=== PATIENT | male | born 1955 | race Caucasian/White ===

== ENCOUNTER 2016-05-16 08:39 | Observation (INO) | payer MEDICAID ==
[2016-05-16] VITALS (8 sets, daily range): BP systolic 146–170; BP diastolic 66–88; PULSE 75–99; RESP 14–20; TEMP 98.5; O2SAT 97–100
[~2016-05-16] VITALS: Ht 170.2 cm; Wt 69.3 kg
[~2016-05-16 08:39] MED LIST: AMBI10TA PO; BUSP10 PO; BUSP10TA PO; HALO5TAB PO; HYDR-3675; LISI10 PO; MVI PO; QUET1TAB9 PO; QUET200 PO; SERO400T PO; TRAZ100 PO; ZOLO100T PO; ZOLO50TA PO; ZOLP10TA3 PO
[2016-05-16] MEDS ORDERED: LISI-515 PO (08:59)
[2016-05-16] MEDS ORDERED: AMOX875T2 PO (08:59)
[2016-05-16] MEDS ORDERED: OXYC1CAP PO (08:59)
[2016-05-16] MEDS ORDERED: SODIUM CHLORIDE 0.9% FLUSH 10 ML FLUSH IVF PRN (09:15)
--- NOTE | 2016-05-16 09:20 | PD ---
HPI Chief Complaint: Altered Mental Status Time Seen by Provider: 08:57 Travel History International Travel<30 days: No Contact w/Intl Traveler<30days: No Traveled to known affect area: No History of Present Illness HPI 61yo M with PMH of bipolar disorder with multiple admissions, HTN, seizure was brought in by [facility] because he was not talking today. As per [facility], pt was drinking with a friend last night and last normal was last night. Then today, another friend came to check on him and found him not talking. Pt is awake and alert and moving all extremities on his own but not following my commands or answering my questions. No signs of trauma on him. PFSH Past Medical History Arthritis: Yes Autoimmune Disease: No Blood Disorders: No Bipolar Disorder: Yes Anxiety: Yes Depression: Yes Cancer: No Cardiovascular Problems: Yes (HTN) Chemotherapy: No Cerebrovascular Accident: No Diabetes: No Diminished Hearing: No Endocrine: No Gastrointestinal Disorders: No Genitourinary: Yes (ELEVATED RENAL LABS 2013) Hypertension: Yes Immune Disorder: No Implanted Vascular Access Dvce: No Musculoskeletal: Yes (HERNIATED DISK) Neurologic: Yes Psychiatric: Yes Respiratory: No Myocardial Infarction: No Radiation Therapy: No Seizures: Yes (LAST SEIZURE 1995) PNEUMOCCOCAL Vaccine (Year): 2 Past Surgical History Oral Surgery: Yes (RECENT ORAL RESECTION ) Pacemaker: No Other Surgery: Yes (BX R SIDE OF FACE 08/22) Social History Alcohol Use: No Tobacco Use: No Substance Use: No Allergies-Medications (Allergen,Severity, Reaction): Coded Allergies: Codeine (Verified Adverse Reaction, Intermediate, RASH, 12/24/15) Reported Meds & Prescriptions Reported Meds & Active Scripts Active Quetiapine (Quetiapine Fumarate) 200 Mg Tab 400 Mg PO HS Haloperidol 5 Mg Tab 5 Mg PO TID Reported Oxycodone (Oxycodone HCl) 10 Mg Tab 10 Mg PO Q6H PRN Seroquel XR (Quetiapine Fumarate) 400 Mg Tab 400 Mg PO DAILY Sertraline (Sertraline HCl) 50 Mg Tab 50 Mg PO DAILY Ambien (Zolpidem Tartrate) 10 Mg Tab 10 Mg PO HS PRN Buspirone (Buspirone HCl) 10 Mg Tab 10 Mg PO BID Review of Systems Except as stated in HPI: all other systems reviewed are Neg Physical Exam Narrative GENERAL: 61yo M not in distress. SKIN: Focused skin assessment warm/dry. HEAD: Atraumatic. Normocephalic. EYES: Pupils equal and round at 3mm bilaterally. NECK: Trachea midline. No JVD. CARDIOVASCULAR: Regular rate and rhythm. No murmur appreciated. RESPIRATORY: No accessory muscle use. Clear to auscultation. Breath sounds equal bilaterally. GASTROINTESTINAL: Abdomen soft, non-tender, nondistended. MUSCULOSKELETAL: No obvious deformities. No clubbing. No cyanosis. No edema. NEUROLOGICAL: Awake and alert. Nonverbal. Moving all extremities. PSYCHIATRIC: Inappropriate mood and affect Data Data Last Documented VS Vital Signs Date Time Temp Pulse Resp B/P Pulse Ox O2 Delivery O2 Flow Rate FiO2 05/16/16 09:19 14 97 Room Air 05/16/16 08:45 98.5 86 146/66 Orders Electrocardiogram (05/16/16 09:03) Ammonia (05/16/16 09:03) Basic Metabolic Panel (Bmp) (05/16/16 09:03) Complete Blood Count With Diff (05/16/16 09:03) Creatine Kinase (Cpk) (05/16/16 09:03) Prothrombin Time / Inr (Pt) (05/16/16 09:03) Act Partial Throm Time (Ptt) (05/16/16 09:03) Troponin I (05/16/16 09:03) Thyroid Stimulating Hormone (05/16/16 09:03) Urinalysis - C+S If Indicated (05/16/16 09:03) Ct Brain W/O Iv Contrast(Rout) (05/16/16 09:03) Blood Glucose (05/16/16 09:03) Ecg Monitoring (05/16/16 09:03) Iv Access Insert/Monitor (05/16/16 09:03) Oximetry (05/16/16 09:03) Sodium Chloride 0.9% Flush (Ns Flush) (05/16/16 09:15) Admit Order (Ed Use Only) (05/16/16 11:45) Labs Laboratory Tests Test 05/16/16 09:10 White Blood Count 6.2 TH/MM3 Red Blood Count 3.95 MIL/MM3 Hemoglobin 13.5 GM/DL Hematocrit 39.7 % Mean Corpuscular Volume 100.4 FL Mean Corpuscular Hemoglobin 34.2 PG Mean Corpuscular Hemoglobin 34.1 % Concent Red Cell Distribution Width 14.0 % Platelet Count 118 TH/MM3 Mean Platelet Volume 8.3 FL Neutrophils (%) (Auto) 75.2 % Lymphocytes (%) (Auto) 15.2 % Monocytes (%) (Auto) 7.3 % Eosinophils (%) (Auto) 1.7 % Basophils (%) (Auto) 0.6 % Neutrophils # (Auto) 4.7 TH/MM3 Lymphocytes # (Auto) 0.9 TH/MM3 Monocytes # (Auto) 0.4 TH/MM3 Eosinophils # (Auto) 0.1 TH/MM3 Basophils # (Auto) 0.0 TH/MM3 CBC Comment DIFF FINAL Differential Comment Prothrombin Time 10.7 SEC Prothromb Time International 1.0 RATIO Ratio Activated Partial 25.4 SEC Thromboplast Time Sodium Level 137 MEQ/L Potassium Level 3.8 MEQ/L Chloride Level 101 MEQ/L Carbon Dioxide Level 23.3 MEQ/L Anion Gap 13 MEQ/L Blood Urea Nitrogen 13 MG/DL Creatinine 1.08 MG/DL Estimat Glomerular Filtration 69 ML/MIN Rate Random Glucose 117 MG/DL Calcium Level 9.4 MG/DL Ammonia 28 MCMOL/L Total Creatine Kinase 97 U/L Troponin I LESS THAN 0.02 NG/ML Thyroid Stimulating Hormone 0.428 uIU/ML [address] [place] [address] Medical Decision Making Medical Screen Exam Complete: Yes Emergency Medical Condition: Yes Interpretation(s) Laboratory Tests Test 05/16/16 09:10 White Blood Count 6.2 TH/MM3 (4.0-11.0) Red Blood Count 3.95 MIL/MM3 (4.50-5.90) Hemoglobin 13.5 GM/DL (13.0-17.0) Hematocrit 39.7 % (39.0-51.0) Mean Corpuscular Volume 100.4 FL (80.0-100.0) Mean Corpuscular Hemoglobin 34.2 PG (27.0-34.0) Mean Corpuscular Hemoglobin 34.1 % Concent (32.0-36.0) Red Cell Distribution Width 14.0 % (11.6-17.2) Platelet Count 118 TH/MM3 (150-450) Mean Platelet Volume 8.3 FL (7.0-11.0) Neutrophils (%) (Auto) 75.2 % (16.0-70.0) Lymphocytes (%) (Auto) 15.2 % (9.0-44.0) Monocytes (%) (Auto) 7.3 % (0.0-8.0) Eosinophils (%) (Auto) 1.7 % (0.0-4.0) Basophils (%) (Auto) 0.6 % (0.0-2.0) Neutrophils # (Auto) 4.7 TH/MM3 (1.8-7.7) Lymphocytes # (Auto) 0.9 TH/MM3 (1.0-4.8) Monocytes # (Auto) 0.4 TH/MM3 (0-0.9) Eosinophils # (Auto) 0.1 TH/MM3 (0-0.4) Basophils # (Auto) 0.0 TH/MM3 (0-0.2) CBC Comment DIFF FINAL Differential Comment Prothrombin Time 10.7 SEC (9.8-11.6) Prothromb Time International 1.0 RATIO Ratio Activated Partial 25.4 SEC Thromboplast Time (24.3-30.1) Sodium Level 137 MEQ/L (136-145) Potassium Level 3.8 MEQ/L (3.5-5.1) Chloride Level 101 MEQ/L (98-107) Carbon Dioxide Level 23.3 MEQ/L (21.0-32.0) Anion Gap 13 MEQ/L (5-15) Blood Urea Nitrogen 13 MG/DL (7-18) Creatinine 1.08 MG/DL (0.60-1.30) Estimat Glomerular Filtration 69 ML/MIN (>89) Rate Random Glucose 117 MG/DL (74-106) Calcium Level 9.4 MG/DL (8.5-10.1) Ammonia 28 MCMOL/L (11-32) Total Creatine Kinase 97 U/L (39-308) Troponin I LESS THAN 0.02 NG/ML (0.02-0.05) Thyroid Stimulating Hormone 0.428 uIU/ML 3rd Gen (0.358-3.740) Last Impressions Head CT 05/16/16 0903 Signed Impressions: Service Date/Time: Monday, May 16, 2016 10:12 - CONCLUSION: 1. No acute intracranial abnormality identified. Alan Painter MD Differential Diagnosis Psychosis vs. CVA vs. electrolyte abnormality vs. post ictal state Narrative Course 61yo M with AMS. Pt does have a psych history. However, pt is currently not speaking and making incomprehensible sounds. Cannot rule out CVA. Labs reviewed, no leukocytosis. Glucose 117. Ammonia normal at 28. Troponin negative. TSH normal. CT brain showed no acute intracranial abnormality. VS stable. Although this could be psychosis, I cannot rule out other medical causes of alter mental status without doing further testing. Will admit to medicine for work up of CVA. Diagnosis Primary Impression: Altered mental status Qualified Code: R41.82 - Altered mental status, unspecified altered mental status type Admitting Information Admitting Physician Requests: Carolina Hairston DO May 16, 2016 09:20
[2016-05-16 09:30] LABS: AUTOMATED NEUTROPHIL # 4.7 TH/MM3 (1.8-7.7); BASOPHIL % 0.6 % (0.0-2.0); EOSINOPHIL # 0.1 TH/MM3 (0-0.4); EOSINOPHIL % 1.7 % (0.0-4.0); HEMATOCRIT 39.7 % (39.0-51.0); HEMO FLAGS DIFF FINAL; LYMPH % 15.2 % (9.0-44.0); LYMPHOCYTE # 0.9 TH/MM3 (1.0-4.8); MEAN CELL VOLUME 100.4 FL (80.0-100.0); MEAN CORPUSCULAR HEMOGLOBIN 34.2 PG (27.0-34.0); MEAN CORPUSCULAR HGB CONC 34.1 % (32.0-36.0); MONO % 7.3 % (0.0-8.0); NEUT % 75.2 % (16.0-70.0); PLATELET COUNT 118 TH/MM3 (150-450); RED BLOOD COUNT 3.95 MIL/MM3 (4.50-5.90); WHITE BLOOD COUNT 6.2 TH/MM3 (4.0-11.0)
[2016-05-16 09:39] LABS: PROTHROMBIN TIME - PATIENT 10.7 SEC (9.8-11.6)
[2016-05-16 09:41] LABS: APTT (PATIENT) 25.4 SEC (24.3-30.1)
[2016-05-16 09:59] LABS: ANION GAP 13 MEQ/L (5-15); BICARBONATE 23.3 MEQ/L (21.0-32.0); BLOOD UREA NITROGEN 13 MG/DL (7-18); CHLORIDE 101 MEQ/L (98-107); GLOMERULAR FILTRATION RATE 69 ML/MIN (>89); SODIUM (NA) 137 MEQ/L (136-145)
[2016-05-16 10:00] LABS: CREATINE KINASE 97 U/L (39-308); POTASSIUM 3.8 MEQ/L (3.5-5.1)
--- NOTE | 2016-05-16 10:26 | RADRPT ---
EXAM DATE/TIME: 05/16/2016 10:12 [facility] COMPARISON: CT BRAIN W/O CONTRAST, December 24, 2015, 22:18. INDICATIONS : Altered mental status RADIATION DOSE: 35.37 CTDIvol (mGy) MEDICAL HISTORY : Cardiovascular disease. Hypertension. SURGICAL HISTORY : None. ENCOUNTER: Initial ACUITY: 1 day PAIN SCALE: Non-responsive LOCATION: cranial TECHNIQUE: Multiple contiguous axial images were obtained of the head. Using automated exposure control and adj ustment of the mA and/or kV according to patient size, radiation dose was kept as low as reasonably a chievable to obtain optimal diagnostic quality images. FINDINGS: CEREBRUM: The ventricles are normal for age. No evidence of midline shift, mass lesion, hemorrhage or acute in farction. No extra-axial fluid collections are seen. POSTERIOR FOSSA: The cerebellum and brainstem are intact. The 4th ventricle is midline. The cerebellopontine angle i s unremarkable. EXTRACRANIAL: The visualized portion of the orbits is intact. SKULL: The calvaria is intact. No evidence of skull fracture. CONCLUSION: 1. No acute intracranial abnormality identified. Alan Painter MD on May 16, 2016 at 10:24 Board Certified Radiologist. This report was verified electronically.
[2016-05-16] MEDS ORDERED: SODIUM CHLORIDE 0.9% FLUSH 10 ML FLUSH IV FLUSH PRN ×2 (13:15)
[2016-05-16] MEDS ORDERED: LORazepam 2 MG/ML VIAL IM PRN (13:15)
--- NOTE | 2016-05-16 13:30 | HHI.HP ---
[facility] Service [facility] Primary Care Physician Panchito Spencer MD Admission Diagnosis CVA Diagnoses: Chief Complaint: Altered mental status with aphasia Travel History International Travel<30 Days: No Contact w/Intl Traveler <30 Da: No Traveled to Known Affected Are: No History of Present Illness 61 years old male with significant past medical history of bipolar disease with severe manic features and visual hallucination with multiple missions to psych unit, also hypertension seizure, history of oral cancer status post surgery, brought to the ER. [facility] due to sudden aphagia. Patient has been drinking yesterday night with his friend then today his other friend came to check on him and he found him not able to talk. I saw the patient in ED room he was laying in bed with upper extremities restrained to the bed. He was lethargic, having nonpurposeful upper and lower extremity movement, he's trying to talk but he is basically mumbling in an aphasic way. I discussed with ED physician, her concern that the patient despite his psychiatry history he never had aphasia . CT of the head in the ED did not show any hemorrhage or stroke, his basic lab no electrolyte imbalance. 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 Normocephalic. EYES: Pupils equal round and reactive. Extraocular motions intact. No scleral icterus. ENT: Nose without bleeding, or drainage, Airway patent. NECK: Trachea midline. Supple CARDIOVASCULAR: Regular rate and rhythm without murmurs, gallops, or rubs. RESPIRATORY: Fair air entry bilaterally. No wheezes, rales, or rhonchi. GASTROINTESTINAL: Abdomen soft, non-tender, nondistended. Positive bowel sounds MUSCULOSKELETAL: Extremities without clubbing, cyanosis, or edema. Pedal pulses appreciated NEUROLOGICAL: Patient lethargic, mumbling/aphasic, unpurposeful movement of the upper and lower extremity Laboratory Laboratory Tests Test 05/16/16 09:10 White Blood Count 6.2 Red Blood Count 3.95 Hemoglobin 13.5 Hematocrit 39.7 Mean Corpuscular Volume 100.4 Mean Corpuscular Hemoglobin 34.2 Mean Corpuscular Hemoglobin 34.1 Concent Red Cell Distribution Width 14.0 Platelet Count 118 Mean Platelet Volume 8.3 Neutrophils (%) (Auto) 75.2 Lymphocytes (%) (Auto) 15.2 Monocytes (%) (Auto) 7.3 Eosinophils (%) (Auto) 1.7 Basophils (%) (Auto) 0.6 Neutrophils # (Auto) 4.7 Lymphocytes # (Auto) 0.9 Monocytes # (Auto) 0.4 Eosinophils # (Auto) 0.1 Basophils # (Auto) 0.0 CBC Comment DIFF FINAL Differential Comment Prothrombin Time 10.7 Prothromb Time International 1.0 Ratio Activated Partial 25.4 Thromboplast Time Sodium Level 137 Potassium Level 3.8 Chloride Level 101 Carbon Dioxide Level 23.3 Anion Gap 13 Blood Urea Nitrogen 13 Creatinine 1.08 Estimat Glomerular Filtration 69 Rate Random Glucose 117 Calcium Level 9.4 Ammonia 28 Total Creatine Kinase 97 Troponin I LESS THAN 0.02 Thyroid Stimulating Hormone 0.428 3rd Gen Result Diagram: 05/16/16 0910 05/16/16909 Imaging Last Impressions Head CT 05/16/16902 Signed Impressions: Service Date/Time: Monday, May 16, 2016 10:12 - CONCLUSION: 1. No acute intracranial abnormality identified. 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 Alcohol abuse Chronic back pain DVT prophylaxis Plan: Admit for observation Telemetry with neuro check Check MRI of the brain to rule out stroke Check EEG Will allow permissive hypertension at this point until MRI results is available Consult neurology Consult psychiatry Check vitamin B1 B 12 B 6 level as well as folate Will give thiamine and folate, Ativan iv/IM 2 mg every 2 hours only with seizure or severe alcohol withdrawal symptoms Will resume his psych meds Zoloft, Seroquel, os peroneum and monitor clinically for possible symptom resolving SCD and heparin for DVT prophylaxis Discussed Condition With ED physician Garima Chaves MD May 16, 2016 13:30
[2016-05-16] MEDS: LORazepam 2 MG/ML VIAL IV PUSH PRN ×2 (14:25→17:10)
[2016-05-16] MEDS: HEPARIN SODIUM - SQ 10,000 UNITS/ML VIAL SQ SCH ×2 (14:44→22:27)
[2016-05-16] MEDS: MULTIVITAMIN INJ 10 ML, FOLIC ACID INJ 1 MG in SODIUM CHLORID 0.9% 500 ML INJ 500 ML IV SCH (14:45)
[2016-05-16] MEDS: THIAMINE INJ 100 MG in SODIUM CHLORIDE 0.9% INJ 100 ML IV SCH (14:45)
[2016-05-16 15:27] LABS: BACTERIA, URINE RARE /hpf; BLOOD, URINE NEG (NEG); GLUCOSE,URINE NEG (NEG); KETONE, URINE NEG (NEG); NITRITE,URINE NEG (NEG); SQUAMOUS EPITHELIAL CELL URINE <1 /hpf (0-5); URINE COLOR LIGHT-YELLOW (YELLW/STRAW)
[2016-05-16 15:30] LABS: MAGNESIUM 2.1 MG/DL (1.5-2.5)
[2016-05-16 15:31] LABS: COMMENT (UR) CATH-CULTURE IND; CULTURE IF INDICATED CATH CULTURE IND
[2016-05-16 16:18] LABS: AMPHETAMINE, URINE NEG (NEG); BARBITURATES, URINE NEG (NEG); COCAINE, URINE NEG (NEG)
[2016-05-16] MEDS: HALOPERIDOL LACTATE 5 MG/ML AMP IM PRN ×2 (16:39→22:36)
[2016-05-16] MEDS ORDERED: HALOPERIDOL 5 MG TAB PO SCH (18:00)
[2016-05-16] MEDS ORDERED: SERT-132 PO (18:19)
[2016-05-16] MEDS ORDERED: QUET400XR PO (18:19)
[2016-05-16] MEDS ORDERED: OXYC-395 PO (18:20)
[2016-05-16] MEDS ORDERED: SODIUM CHLORIDE 0.9% FLUSH 10 ML FLUSH IV FLUSH SCH (21:00)
[2016-05-16] MEDS: SODIUM CHLORIDE 0.9% FLUSH 10 ML FLUSH IV FLUSH SCH (21:00)
[2016-05-16] MEDS: busPIRone HCL 10 MG TAB PO SCH (21:00)
[2016-05-16] MEDS ORDERED: QUEtiapine FUMARATE 200 MG TAB PO SCH (21:00)
[2016-05-17] VITALS (8 sets, daily range): BP systolic 143–190; BP diastolic 70–92; PULSE 76–103; RESP 18–20; TEMP 97–98.9; O2SAT 94–98
[2016-05-17] MEDS: LORazepam 2 MG/ML VIAL IV PUSH PRN (02:38)
[2016-05-17 05:10] LABS: BASOPHIL # 0.1 TH/MM3 (0-0.2); BASOPHIL % 0.6 % (0.0-2.0); EOSINOPHIL % 0.5 % (0.0-4.0); HEMATOCRIT 37.7 % (39.0-51.0); HEMO FLAGS DIFF FINAL; LYMPH % 11.2 % (9.0-44.0); MEAN CELL VOLUME 102.3 FL (80.0-100.0); MEAN CORPUSCULAR HEMOGLOBIN 34.1 PG (27.0-34.0); MEAN CORPUSCULAR HGB CONC 33.3 % (32.0-36.0); MONO % 7.4 % (0.0-8.0); NEUT % 80.3 % (16.0-70.0); PLATELET COUNT 119 TH/MM3 (150-450); RED BLOOD COUNT 3.69 MIL/MM3 (4.50-5.90); RED CELL DISTRIBUTION WIDTH 13.7 % (11.6-17.2); WHITE BLOOD COUNT 8.7 TH/MM3 (4.0-11.0)
--- NOTE | 2016-05-17 05:12 | MB ---
cc: LUIS ANTONIO IBARRA M.D. DATE OF CONSULTATION 05/16/2016 HISTORY OF PRESENT ILLNESS He is 61 years old, seen in neurological consultation. I saw him while he was here in the emergency room, though he had been there for several hours. He was brought to the hospital today when apparently friends found him not at his baseline, not talking. Reportedly he was drinking with a friend last night and was doing fine at that point, then this morning he was not expressing himself. PAST MEDICAL HISTORY 1. He has a history of a bipolar disorder. 2. Hypertension. 3. Seizures. 4. Multiple hospitalizations. No suggestion of any seizure at this time but evidently we have limited information. MEDICATIONS His medications include oxygen - 1. Oxycodone. 2. Lisinopril. 3. Zoloft. 4. Ambien. 5. Seroquel. 6. Buspiron. 7. Quetiapine. 8. Haldol. PHYSICAL EXAMINATION GENERAL: On exam the patient is unable to give me a history or any more significant information. NEUROLOGIC: He was awake and appeared reasonably alert but not following commands. At times some words came out that were barely comprehensible. He is moving all four extremities. He appeared restless, somewhat agitated but the neck is supple. The pupils were about the same size, reactive. The reflexes were diminished throughout and difficult to enlist with poor cooperation. He has some left knee minor abrasion. Plantar responses were probably flexor. DIAGNOSTIC STUDIES The available data was reviewed. I subsequently asked for urine toxicology which also has come up negative, except for positive OB age. Basic chemistry with normal numbers. B12 level normal as well as TSH. WBC 6.2, hemoglobin 13.5, platelets 118. RPR pending. The CT brain was reviewed, negative for any acute process. ASSESSMENT 1. Acute neurologic change characterized by agitation, aphasia, restlessness. Apparently he was drinking alcohol last night. 2. History of bipolar disorder and seizures. Seizure is an important consideration here, from withdrawal or precipitated by withdrawal. RECOMMENDATIONS 1. MRI to be accomplished looking for a cerebrovascular event. 2. He is afebrile and there is really nothing else to suggest an infectious process. Therefore I am refraining from suggesting lumbar puncture for the time-being. 3. An EEG is to be obtained. 4. I will follow the neurological course. Thank you for asking us to assist in his care. MD EMILY Aguilar/GADIEL /5:18 PM /5:04 AM
[2016-05-17 05:29] LABS: BICARBONATE 21.3 MEQ/L (21.0-32.0); POTASSIUM 4.1 MEQ/L (3.5-5.1)
[2016-05-17] MEDS: HEPARIN SODIUM - SQ 10,000 UNITS/ML VIAL SQ SCH ×2 (06:40→14:00)
[2016-05-17] MEDS: DEXT 5%-NACL 0.45% 1000 ML INJ 1,000 ML IV PRN (06:43)
[2016-05-17] MEDS: SODIUM CHLORIDE 0.9% FLUSH 10 ML FLUSH IV FLUSH SCH ×2 (08:21→21:17)
[2016-05-17] MEDS: SERTRALINE HCL 100 MG TAB PO SCH (08:22)
[2016-05-17] MEDS: busPIRone HCL 10 MG TAB PO SCH ×2 (08:22→21:17)
--- NOTE | 2016-05-17 08:58 | MG ---
cc: CASTRO HOU M.D. Lab No: [id number] Date: 05/17/2016 Age: 61 Sex: M Race: __ DATE OF [address] Chaves ROOM F68 TECHNIQUE 1 mg of Ativan given 30 minutes prior to the study for severe agitation. The patient was drowsy and then asleep with only photic stimulation performed. His last EEG in February [address] is negative. INDICATIONS This is a 61-year-old man found aphasic by a friend had some alcohol the night before with his friend. He was awake at that time alert, moving all extremities. He was found a aphasic. He has a past medical history, bipolar disorder, hypertension, seizures with the last seizure in 1995, history of arthritis as well as psychiatric illness, alcoholism. MEDICATIONS His medications are: 1. Oxycodone 2. Ativan 3. Lisinopril 4. Amoxicillin 5. Zoloft 6. Ambien 7. Seroquel 8. Buspirone DESCRIPTION OF RECORD The patient is supine, head is tilted to the right. At epoch 12, there are some mouth movements. There is some right arm movement. Questionable if this is sharp wave activity versus artifact. Otherwise the overall background shows some diffuse slowing in the theta range. At epoch 28, there is some body jerking that looks more artifactual. There is no ongoing spike waves or sharp waves after these events or prior. At times there is a normal alpha since the patient is more awake and then he falls back asleep and he is back into the theta range. Photic stimulation shows a posterior driving response. After photic 23 Hz, there was some arm jerking, no correlation with any epileptiform features. IMPRESSION Minor background slowing seen may be due to the patient's sedation from Ativan versus somnolent state. There is some body jerking and mouth movement that looks more artifactual however, given there is some alcohol history, it would be prudent to watch for any withdrawal seizures. Clinical correlation. MD CYNDI Ac/JAROCHO /8:19 AM 8:49 AM
--- NOTE | 2016-05-17 09:07 | HHI.PR ---
Review/Management Daily Summary not following commands, agitated and uncooperative rumbling speech, wants to be left alone unable to get mri due to agitation haldol and ativan given discussed with RN needs mri and LP, dx uncertain, ??etoh withdrawal doubt of encephalitis, neoplastic meningitis etc Subjective Subjective Comments confused and agitated Active Medications Current Medications Medications (Trade) Dose Ordered Sig/Audrey Route Start Time Stop Time Status Last Admin (NS Flush) 2 ml UNSCH PRN IV FLUSH 05/16/16 13:15 (NS Flush) 2 ml BID IV FLUSH 05/16/16 21:00 Heparin Sodium (Porcine) 5000 units 5,000 units Q8H SQ 05/16/16 14:00 05/17/16 06:40 Multivitamins 10 ml/Folic Acid 1 mg/Sodium Chloride 510.2 ml @ 125 mls/hr Q24H IV 05/16/16 15:00 05/21/16 14:59 05/16/16 14:45 (Thiamine Inj/NS Inj) 101 ml @ 100 mls/hr Q24H IV 05/16/16 15:00 05/19/16 14:59 05/16/16 14:45 (Ativan Inj) 1 mg Q2H PRN IM 05/16/16 13:15 (Ativan Inj) 1 mg Q2H PRN IV PUSH 05/16/16 13:15 05/17/16 02:38 (Buspar) 10 mg BID PO 05/16/16 21:00 (Zoloft) 100 mg DAILY PO 05/17/16 09:00 (SEROquel) 400 mg BID PO 05/16/16 21:00 Hold Haloperidol Lactate 5 mg 5 mg Q6H PRN IM 05/16/16 16:30 05/16/16 22:36 (D5W-1/2 NS 1000 ml Inj) 1,000 ml @ 75 mls/hr [id number] PRN IV 05/16/16 16:45 05/17/16 06:43 Allergies Allergies Coded Allergies Codeine (Verified Adverse Reaction, Intermediate, RASH, 12/24/15) Exam I&O / VS 05/16/16 05/16/16 05/17/16 15:00 23:00 07:00 Output Total 750 ml Balance -750 ml Output Urine Total 750 ml Vital Signs Date Time Temp Pulse Resp B/P Pulse Ox O2 Delivery O2 Flow Rate FiO2 05/17/16 07:41 98.3 102 20 161/92 97 05/17/16 06:23 86 18 152/73 98 05/16/16 21:35 75 05/16/16 19:32 92 18 166/79 97 05/16/16 16:02 99 20 170/88 99 05/16/16 15:46 96 05/16/16 14:02 88 18 152/78 99 05/16/16 13:34 88 20 158/77 100 Room Air 05/16/16 09:19 14 97 Room Air Objective Micro and Labs Laboratory Tests Test 05/16/16 05/16/16 05/16/16 05/16/16 09:10 14:40 14:42 14:55 White Blood Count 6.2 Red Blood Count 3.95 Hemoglobin 13.5 Hematocrit 39.7 Mean Corpuscular Volume 100.4 Mean Corpuscular Hemoglobin 34.2 Mean Corpuscular Hemoglobin 34.1 Concent Red Cell Distribution Width 14.0 Platelet Count 118 Mean Platelet Volume 8.3 Neutrophils (%) (Auto) 75.2 Lymphocytes (%) (Auto) 15.2 Monocytes (%) (Auto) 7.3 Eosinophils (%) (Auto) 1.7 Basophils (%) (Auto) 0.6 Neutrophils # (Auto) 4.7 Lymphocytes # (Auto) 0.9 Monocytes # (Auto) 0.4 Eosinophils # (Auto) 0.1 Basophils # (Auto) 0.0 CBC Comment DIFF FINAL Differential Comment Prothrombin Time 10.7 Prothromb Time International 1.0 Ratio Activated Partial 25.4 Thromboplast Time Sodium Level 137 Potassium Level 3.8 Chloride Level 101 Carbon Dioxide Level 23.3 Anion Gap 13 Blood Urea Nitrogen 13 Creatinine 1.08 Estimat Glomerular Filtration 69 Rate Random Glucose 117 Calcium Level 9.4 Ammonia 28 Total Creatine Kinase 97 Troponin I LESS THAN 0.02 Thyroid Stimulating Hormone 0.428 3rd Gen Magnesium Level 2.1 Vitamin B12 Level 445 Folate 16.0 Ethyl Alcohol Level LESS THAN 3 Lactic Acid Level 3.2 Urine Color LIGHT-YELLOW Urine Turbidity CLEAR Urine pH 6.0 Urine Specific [place] 1.005 Urine Protein NEG Urine Glucose (UA) NEG Urine Ketones NEG Urine Occult Blood NEG Urine Nitrite NEG Urine Bilirubin NEG Urine Urobilinogen LESS THAN 2.0 Urine Leukocyte Esterase NEG Urine RBC LESS THAN 1 Urine WBC 1 Urine Squamous Epithelial <1 Cells Urine Bacteria RARE Microscopic Urinalysis Comment CATH-CULTURE IND Urine Opiates Screen POS Urine Barbiturates Screen NEG Urine Amphetamines Screen NEG Urine Benzodiazepines Screen NEG Urine Cocaine Screen NEG Urine Cannabinoids Screen NEG Test 05/16/16 05/17/16 19:16 04:48 Lactic Acid Level 0.9 White Blood Count 8.7 Red Blood Count 3.69 Hemoglobin 12.6 Hematocrit 37.7 Mean Corpuscular Volume 102.3 Mean Corpuscular Hemoglobin 34.1 Mean Corpuscular Hemoglobin 33.3 Concent Red Cell Distribution Width 13.7 Platelet Count 119 Mean Platelet Volume 8.2 Neutrophils (%) (Auto) 80.3 Lymphocytes (%) (Auto) 11.2 Monocytes (%) (Auto) 7.4 Eosinophils (%) (Auto) 0.5 Basophils (%) (Auto) 0.6 Neutrophils # (Auto) 7.0 Lymphocytes # (Auto) 1.0 Monocytes # (Auto) 0.6 Eosinophils # (Auto) 0.0 Basophils # (Auto) 0.1 CBC Comment DIFF FINAL Differential Comment Sodium Level 140 Potassium Level 4.1 Chloride Level 109 Carbon Dioxide Level 21.3 Anion Gap 10 Blood Urea Nitrogen 11 Creatinine 0.72 Estimat Glomerular Filtration 110 Rate Random Glucose 97 Calcium Level 9.2 Date/Time Procedure Status Source Growth 05/16/16 14:55 Urine Culture Received Urine Catheterized Urine Pending Kelley Cannon MD May 17, 2016 09:07
[2016-05-17] MEDS ORDERED: BENZ0.5T PO (10:05)
[2016-05-17] MEDS ORDERED: TRAM50TA PO (10:05)
[2016-05-17] MEDS ORDERED: BUSP10TA PO (10:05)
--- NOTE | 2016-05-17 10:56 | EKG ---
Date Performed: 05/16/2016 Time Performed: 13:55:30 PTAGE: 61 years EKG: Sinus rhythm POSSIBLE RIGHT VENTRICULAR CONDUCTION DELAY Prior EKG not suitable for comparison, secondary to poor quality BORDERLINE ECG PREVIOUS TRACING : 03/08/2014 02.00 DOCTOR: Daphnie Hays Interpretating Date/Time 05/17/2016 10:56:26
--- NOTE | 2016-05-17 15:19 | PD.CONS ---
Provisional Diagnosis Admission Date May 16, 2016 at 11:47 [place] I. Delirium due to underlying medical condition, bipolar disorder [place] II. Deferred History of Present Illness Service Psychiatry Consult Requested By Primary Care Physician Panchito Spencer MD HPI The patient is a 61-year-old man, domiciled alone in [place], unemployed, supported by [facility], with a psychiatric history of bipolar disorder, numerous hospitalizations, and the last hospitalization was here at [facility] in 2015 under the care of Dr. Hussein, documentation was reviewed, as per EMR he gets outpatient psychiatric care with Dr. Hayes, he is on Seroquel 500 mg at bedtime, BuSpar unknown doses, Ambien 10 mg, Haldol 5 mg 3 times a day, Ambien 10 mg, medical history of hypertension seizure, history of oral cancer status post surgery, brought to the ER. [facility] due to sudden aphagia. Patient has been drinking yesterday night with his friend then today his other friend came to check on him and he found him not able to talk. I saw the patient in ED room he was laying in bed with upper extremities restrained to the bed. On psychiatric evaluation patient is non-cooperative, restrained in 4 point, incoherent, with marked aphasia, unable to articulate sensical words at the moment of this evaluation. Nurse in charge he stated the patient has been very agitated, brain CT could not be done due to motoric restlessness and agitation. Patient was medicated with Haldol 5 mg and Ativan 2 mg IV minutes ago to calm him down. Review of Systems ROS Limitations: Unresponsive, Uncooperative Past Family Social History Coded Allergies: Codeine (Verified Adverse Reaction, Intermediate, RASH, 12/24/15) Active Scripts Haloperidol 5 Mg Tab5 Mg PO TID #90 TAB Prov:Aure Hussein MD 12/30/15 Reported Medications Tramadol 50 Mg Tab50 Mg PO BID PRN (PAIN) Ref 0 05/17/16 Benztropine 0.5 Mg Tab0.5 Mg PO BID #60 TAB Ref 0 05/17/16 Buspirone 10 Mg Tab10 Mg PO DAILY Ref 0 05/17/16 Oxycodone 10 Mg Tab10 Mg PO Q6H PRN (PAIN) Ref 0 05/16/16 Quetiapine XR (Seroquel XR)400 Mg Etq357 Mg PO DAILY #30 TAB Ref 0 05/16/16 Sertraline 50 Mg Tab50 Mg PO DAILY #30 TAB Ref 0 05/16/16 Zolpidem (Ambien)10 Mg Tab10 Mg PO HS PRN (INSOMNIA) Ref 0 12/24/15 Current Medications Medications (Trade) Dose Ordered Sig/Audrey Route Start Time Stop Time Status Last Admin (NS Flush) 2 ml UNSCH PRN IV FLUSH 05/16/16 13:15 (NS Flush) 2 ml BID IV FLUSH 05/16/16 21:00 Heparin Sodium (Porcine) 5000 units 5,000 units Q8H SQ 05/16/16 14:00 05/17/16 06:40 Multivitamins 10 ml/Folic Acid 1 mg/Sodium Chloride 510.2 ml @ 125 mls/hr Q24H IV 05/16/16 15:00 05/21/16 14:59 05/16/16 14:45 (Thiamine Inj/NS Inj) 101 ml @ 100 mls/hr Q24H IV 05/16/16 15:00 05/19/16 14:59 05/16/16 14:45 (Ativan Inj) 1 mg Q2H PRN IM 05/16/16 13:15 (Ativan Inj) 1 mg Q2H PRN IV PUSH 05/16/16 13:15 05/17/16 02:38 (Buspar) 10 mg BID PO 05/16/16 21:00 (Zoloft) 100 mg DAILY PO 05/17/16 09:00 (SEROquel) 400 mg BID PO 05/16/16 21:00 Hold Haloperidol Lactate 5 mg 5 mg Q6H PRN IM 05/16/16 16:30 05/16/16 22:36 (D5W-1/2 NS 1000 ml Inj) 1,000 ml @ 75 mls/hr [id number] PRN IV 05/16/16 16:45 05/17/16 06:43 Social History Patient is domiciled alone in [place], unemployed, supported by SSI. Physical Exam Vital Signs Vital Signs Date Time Temp Pulse Resp B/P Pulse Ox O2 Delivery O2 Flow Rate FiO2 05/17/16 11:52 98.3 76 18 190/78 96 05/16/16 13:34 Room Air I/O 05/16/16 05/16/16 05/17/16 08:00 16:00 00:00 Output Total 750 ml Balance -750 ml Mental Status Examination Mental status very limited due to non-cooperativeness and incoherent speech Appearance man, restrained in 4 points, [facility], non-cooperative, incoherent speech Speech: Incoherent Previous Suicide Attempts: No Previous Homicide Attempts: No Assessment & Plan Problem List: (1) Delirium due to another medical condition Assessment & Plan: The patient is a 61-year-old man, with a psychiatric history of bipolar disorder, numerous hospitalizations, and the last hospitalization was here at [facility] in 2015 under the care of Dr. Hussein, documentation was reviewed, as per EMR he gets outpatient psychiatric care with Dr. Hayes, he is on Seroquel 500 mg at bedtime, BuSpar unknown doses, Ambien 10 mg, Haldol 5 mg 3 times a day, Ambien 10 mg, medical history of hypertension seizure, history of oral cancer status post surgery, brought to the ER. [facility] due to sudden aphagia. Patient has been drinking yesterday night with his friend then today his other friend came to check on him and he found him not able to talk. I saw the patient in ED room he was laying in bed with upper extremities restrained to the bed. On psychiatric evaluation patient is non-cooperative, restrained in 4 point, incoherent, with marked aphasia, unable to articulate sensical words at the moment of this evaluation. Nurse in charge he stated the patient has been very agitated, brain CT could not be done due to motoric restlessness and agitation. Patient was medicated with Haldol 5 mg and Ativan 2 mg IV minutes ago to calm him down. No immediate psychiatric intervention is needed at this time. Hold psychotropics at this moment. For agitation and restlessness Haldol 5 mg IV/IM when necessary every 8 hours can be given. Will avoid delirioenic medication such as benzodiazepines /anticholinergics\narcotics as much as possible. Current presentation doesn't seem to be secondary to a major psychiatric illness decompensation, agree with neurology consult, brain CT and LP to rule out organic/structural causes of aphasia and AMS. We'll follow-up. ICD Code: F05 Assessment & Plan Estimated LOS: Simone Moreno MD May 17, 2016 15:19
--- NOTE | 2016-05-17 15:46 | HHI.PR ---
Subjective Remarks Patient is slightly better today at least when I went into the room to see him He's trying to talk and verbalized but it still, out as mumbling not clear or interpretable Neurology following the plan for MRI and LP possibly under anesthesia, anesthesiologist consulted Objective Vitals Vital Signs Date Time Temp Pulse Resp B/P Pulse Ox O2 Delivery O2 Flow Rate FiO2 05/17/16 15:09 89 05/17/16 11:52 98.3 76 18 190/78 96 05/17/16 08:00 103 05/17/16 07:41 98.3 102 20 161/92 97 05/17/16 06:23 86 18 152/73 98 05/16/16 21:35 75 05/16/16 19:32 92 18 166/79 97 05/16/16 16:02 99 20 170/88 99 05/16/16 15:46 96 I/O 05/16/16 05/16/16 05/16/16 05/17/16 05/17/16 05/17/16 07:00 15:00 23:00 07:00 15:00 23:00 Output Total 750 ml Balance -750 ml Output Urine Total 750 ml Result Diagram: 05/17/16 0448 05/17/16 0448 Imaging Last Impressions Head CT 05/16/16 0903 Signed Impressions: Service Date/Time: Monday, May 16, 2016 10:12 - CONCLUSION: 1. No acute intracranial abnormality identified. Alan Painter MD Objective Remarks GENERAL: This is a frail 61 years old male who is mumbling with on and off temper and agitation SKIN: No rashes, warm and dry HEAD: Atraumatic. Normocephalic. EYES: Pupils equal round and reactive. Extraocular motions intact. No scleral icterus. ENT: Nose without bleeding, or drainage, Airway patent. NECK: Trachea midline. Supple CARDIOVASCULAR: Regular rate and rhythm without murmurs, gallops, or rubs. RESPIRATORY: Fair air entry bilaterally. No wheezes, rales, or rhonchi. GASTROINTESTINAL: Abdomen soft, non-tender, nondistended. Positive bowel sounds MUSCULOSKELETAL: Extremities without clubbing, cyanosis, or edema. 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 History of seizure History of encephalopathy most likely alcoholic Alcohol abuse Chronic back pain DVT prophylaxis Plan: Telemetry with neuro check Denied able to do MRI due to agitation Pending EEG permissive hypertension at this point until MRI results is available Appreciate neurology consultation, he is recommending MRI and LP under anesthesia , anesthesiologist consulted Attending psychiatry consultation Check vitamin B1 B 12 B 6 level as well as folate thiamine and folate, Ativan iv/IM 2 mg every 2 hours only with seizure or severe alcohol withdrawal symptoms resume his psych meds Zoloft, Seroquel, os peroneum and monitor clinically for possible symptom resolving SCD and heparin for DVT prophylaxis Garima Chaves MD May 17, 2016 15:46
[2016-05-17] MEDS: THIAMINE INJ 100 MG in SODIUM CHLORIDE 0.9% INJ 100 ML IV SCH (15:48)
[2016-05-17] MEDS: MULTIVITAMIN INJ 10 ML, FOLIC ACID INJ 1 MG in SODIUM CHLORID 0.9% 500 ML INJ 500 ML IV SCH (15:50)
[2016-05-17 17:35] LABS: AUTOMATED NEUTROPHIL # 6.3 TH/MM3 (1.8-7.7); BASOPHIL % 0.2 % (0.0-2.0); EOSINOPHIL % 0.2 % (0.0-4.0); HEMATOCRIT 37.2 % (39.0-51.0); HEMO FLAGS DIFF FINAL; LYMPH % 10.6 % (9.0-44.0); LYMPHOCYTE # 0.8 TH/MM3 (1.0-4.8); MEAN CELL VOLUME 101.4 FL (80.0-100.0); MEAN CORPUSCULAR HEMOGLOBIN 34.8 PG (27.0-34.0); MEAN CORPUSCULAR HGB CONC 34.3 % (32.0-36.0); MONO % 7.5 % (0.0-8.0); NEUT % 81.5 % (16.0-70.0); PLATELET COUNT 137 TH/MM3 (150-450); RED BLOOD COUNT 3.66 MIL/MM3 (4.50-5.90); RED CELL DISTRIBUTION WIDTH 13.9 % (11.6-17.2); WHITE BLOOD COUNT 7.7 TH/MM3 (4.0-11.0)
[2016-05-17 17:48] LABS: APTT (PATIENT) 27.5 SEC (24.3-30.1); PROTHROMBIN TIME - PATIENT 10.7 SEC (9.8-11.6)
[2016-05-17 18:07] LABS: BICARBONATE 22.7 MEQ/L (21.0-32.0)
[2016-05-17] MEDS: HALOPERIDOL LACTATE 5 MG/ML AMP IM PRN (22:53)
[2016-05-18] VITALS (7 sets, daily range): BP systolic 128–162; BP diastolic 69–76; PULSE 74–93; RESP 16–19; TEMP 97.2–99.3; O2SAT 96–99
[2016-05-18 04:58] LABS: AUTOMATED NEUTROPHIL # 4.7 TH/MM3 (1.8-7.7); BASOPHIL % 0.2 % (0.0-2.0); EOSINOPHIL % 0.4 % (0.0-4.0); HEMATOCRIT 34.6 % (39.0-51.0); HEMO FLAGS DIFF FINAL; LYMPH % 15.1 % (9.0-44.0); LYMPHOCYTE # 0.9 TH/MM3 (1.0-4.8); MEAN CELL VOLUME 101.1 FL (80.0-100.0); MEAN CORPUSCULAR HEMOGLOBIN 34.8 PG (27.0-34.0); MEAN CORPUSCULAR HGB CONC 34.4 % (32.0-36.0); MONO % 9.8 % (0.0-8.0); NEUT % 74.5 % (16.0-70.0); PLATELET COUNT 128 TH/MM3 (150-450); RED BLOOD COUNT 3.42 MIL/MM3 (4.50-5.90); RED CELL DISTRIBUTION WIDTH 13.5 % (11.6-17.2); WHITE BLOOD COUNT 6.3 TH/MM3 (4.0-11.0)
[2016-05-18 05:25] LABS: BICARBONATE 18.4 MEQ/L (21.0-32.0); POTASSIUM 3.6 MEQ/L (3.5-5.1)
[2016-05-18] MEDS: DEXT 5%-NACL 0.45% 1000 ML INJ 1,000 ML IV PRN (06:34)
[2016-05-18] MEDS: SERTRALINE HCL 100 MG TAB PO SCH (09:00)
[2016-05-18] MEDS: busPIRone HCL 10 MG TAB PO SCH ×2 (09:00→21:55)
[2016-05-18] MEDS: SODIUM CHLORIDE 0.9% FLUSH 10 ML FLUSH IV FLUSH SCH ×2 (09:00→21:56)
[2016-05-18] MEDS: LORazepam 2 MG/ML VIAL IV PUSH PRN (09:39)
--- NOTE | 2016-05-18 11:53 | PD.RAD ---
Post Procedure Progress Note Procedure Date: May 18, 2016 Supervising Radiologist: Yoan Monroe Plan of Activity See PACS Report for procedural detail/treatment Spinal Procedure Lumbar Puncture L3-L4 Fluid Removal (CCs): 16 Fluid Description: Clear Puncture Time: 11:17 Findings: OP: 18.5 cmH2O Yoan Monroe MD May 18, 2016 11:53
--- NOTE | 2016-05-18 13:23 | HHI.PR ---
Subjective Remarks Follow up on acute altered mental status with mumbling in a patient with history of alcoholism Patient finally had MRI done and just had LP Still mumbling, with intermittent agitation Discussed with the nurse will follow with neurology Objective Vitals Vital Signs Date Time Temp Pulse Resp B/P Pulse Ox O2 Delivery O2 Flow Rate FiO2 05/18/16 08:33 98.4 89 18 128/70 05/17/16 19:35 86 05/17/16 19:14 98.9 90 20 143/70 97 05/17/16 16:00 97.0 90 18 167/74 94 05/17/16 15:09 89 I/O 05/17/16 05/17/16 05/17/16 05/18/16 05/18/16 05/18/16 07:00 15:00 23:00 07:00 15:00 23:00 Intake Total 520 ml Output Total 800 ml Balance -280 ml Intake IV Total 520 ml Output Urine Total 800 ml Result Diagram: 05/18/16 0350 05/18/16 0350 Objective Remarks GENERAL: This is a frail 61 years old male who is mumbling with on and off temper and agitation SKIN: No rashes, warm and dry HEAD: Atraumatic. Normocephalic. EYES: Pupils equal round and reactive. Extraocular motions intact. No scleral icterus. ENT: Nose without bleeding, or drainage, Airway patent. NECK: Trachea midline. Supple CARDIOVASCULAR: Regular rate and rhythm without murmurs, gallops, or rubs. RESPIRATORY: Fair air entry bilaterally. No wheezes, rales, or rhonchi. GASTROINTESTINAL: Abdomen soft, non-tender, nondistended. Positive bowel sounds MUSCULOSKELETAL: Extremities without clubbing, cyanosis, or edema. 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 History of seizure History of encephalopathy most likely alcoholic Alcohol abuse Chronic back pain DVT prophylaxis Plan: Continue Telemetry with neuro check Finally patient able to have MRI and LP done, neurology following EEG showing mild background slowing consistent with sedative permissive hypertension at this point until MRI results is available Appreciate neurology consultation, he is recommending MRI and LP under anesthesia , anesthesiologist consulted Attending psychiatry consultation vitamin B1 B 12 B 6 level as well as folate reviewed as above thiamine and folate, Ativan iv/IM 2 mg every 2 hours only with seizure or severe alcohol withdrawal symptoms Appreciate psychiatry's recommendation, continue Haldol. Stop bEnzo SCD and heparin for DVT prophylaxis Garima Chaves MD May 18, 2016 13:23
--- NOTE | 2016-05-18 14:46 | RADRPT ---
EXAM DATE/TIME: 05/18/2016 12:05 [facility] COMPARISON: MRI BRAIN W & W/O CONTRAST, March 08, 2014, 10:57. INDICATIONS : Altered mental status. CONTRAST: 14 cc Omniscan (gadodiamide) IV MEDICAL HISTORY : Seizures. Carcinoma, tongue. SURGICAL HISTORY : Tongue surgery. ENCOUNTER: Subsequent ACUITY: 3 day PAIN SCORE: Nonresponsive. LOCATION: Head TECHNIQUE: Multiplanar, multisequence MRI of the brain was performed both prior to and following the administration of paramagnetic contrast. FINDINGS: Minimal periventricular changes are noted. There is no parenchymal hemorrhage, acute infarction, or mass lesion. There is no extraaxial fluid collection appreciated. There is no abnormal contrast enhancement. CONCLUSION: Negative MRI of the brain for acute ischemic event. Medardo Painter MD FACR on May 18, 2016 at 14:39 Board Certified Radiologist. This report was verified electronically.
[2016-05-18] MEDS: THIAMINE INJ 100 MG in SODIUM CHLORIDE 0.9% INJ 100 ML IV SCH (15:00)
[2016-05-18] MEDS: MULTIVITAMIN INJ 10 ML, FOLIC ACID INJ 1 MG in SODIUM CHLORID 0.9% 500 ML INJ 500 ML IV SCH (15:00)
[2016-05-18] MEDS ORDERED: GADODIAMIDE PF 287 MG/ML 5 ML VIAL (for RAD MRI) IV ONE (15:49)
[2016-05-18 16:19] LABS: CSF LYMPHOCYTES 0 %; CSF NEUTROPHILS 0 %; GROSS BLOOD TUBE #1 0 (0); SUPERNATE COLOR TUBE #1 CLEAR (CLEAR); VOLUME TUBE # 1 3.2 ML; WBC TUBE #1 0 /MM3 (0-10)
[2016-05-18 16:21] LABS: GROSS BLOOD TUBE #1 0 (0); GROSS BLOOD TUBE #2 0 (0); SUPERNATE COLOR TUBE #1 CLEAR (CLEAR); SUPERNATE COLOR TUBE #2 CLEAR (CLEAR); VOLUME TUBE # 1 3.2 ML
[2016-05-18 16:22] LABS: CSF LYMPHOCYTES 0 %; CSF NEUTROPHILS 0 %; GROSS BLOOD TUBE #3 0 (0); GROSS BLOOD TUBE #4 0 (0); SUPERNATE COLOR TUBE #3 CLEAR (CLEAR); SUPERNATE COLOR TUBE #4 CLEAR (CLEAR); VOLUME TUBE # 3 4.8 ML; WBC TUBE #4 0 /MM3 (0-10)
[2016-05-19] VITALS (7 sets, daily range): BP systolic 136–160; BP diastolic 60–82; PULSE 62–79; RESP 16–20; TEMP 96.8–98.6; O2SAT 94–98
[2016-05-19] MEDS: HALOPERIDOL LACTATE 5 MG/ML AMP IM PRN (01:35)
--- NOTE | 2016-05-19 08:28 | HHI.PR ---
Review/Management Daily Summary not following commands, agitated and uncooperative rumbling speech, wants to be left alone unable to get mri due to agitation haldol and ativan given discussed with RN needs mri and LP, dx uncertain, ??etoh withdrawal doubt of encephalitis, neoplastic meningitis etc 05/19 speech significantly better, comprehensible and making some sense today follows commands, moves 4 limbs well no distress csf intial data negative encephalopathy perhaps secondary to combo of psych disease/meds and etoh pending citology out of bed activities Subjective Subjective Comments more responsive Active Medications Current Medications Medications (Trade) Dose Ordered Sig/Audrey Route Start Time Stop Time Status Last Admin (NS Flush) 2 ml UNSCH PRN IV FLUSH 05/16/16 13:15 (NS Flush) 2 ml BID IV FLUSH 05/16/16 21:00 05/18/16 21:56 Heparin Sodium (Porcine) 5000 units 5,000 units Q8H SQ 05/16/16 14:00 Hold 05/17/16 06:40 Multivitamins 10 ml/Folic Acid 1 mg/Sodium Chloride 510.2 ml @ 125 mls/hr Q24H IV 05/16/16 15:00 05/21/16 14:59 05/17/16 15:50 (Thiamine Inj/NS Inj) 101 ml @ 100 mls/hr Q24H IV 05/16/16 15:00 05/19/16 14:59 05/17/16 15:48 (Buspar) 10 mg BID PO 05/16/16 21:00 05/18/16 21:55 (Zoloft) 100 mg DAILY PO 05/17/16 09:00 Hold (SEROquel) 400 mg BID PO 05/16/16 21:00 Hold Haloperidol Lactate 5 mg 5 mg Q6H PRN IM 05/16/16 16:30 05/19/16 01:35 (D5W-1/2 NS 1000 ml Inj) 1,000 ml @ 75 mls/hr [id number] PRN IV 05/16/16 16:45 05/18/16 06:34 Allergies Allergies Coded Allergies Codeine (Verified Adverse Reaction, Intermediate, RASH, 12/24/15) Exam I&O / VS 05/18/16 05/18/16 05/19/16 15:00 23:00 07:00 Intake Total 350 ml Balance 350 ml Intake IV Total 50 ml Other 300 ml Vital Signs Date Time Temp Pulse Resp B/P Pulse Ox O2 Delivery O2 Flow Rate FiO2 05/19/16 04:51 97.8 75 20 138/60 95 05/18/16 23:36 97.8 75 18 151/69 96 05/18/16 20:40 79 05/18/16 19:22 97.2 80 18 148/72 99 05/18/16 17:06 99.3 74 16 144/76 98 05/18/16 15:51 93 05/18/16 13:45 98.0 77 19 162/73 96 05/18/16 13:15 70 16 147/80 100 Nasal Cannula 2 05/18/16 13:00 78 16 167/90 96 Nasal Cannula 2 05/18/16 12:42 97.6 67 16 157/85 99 Nasal Cannula 2 05/18/16 08:33 98.4 89 18 128/70 Objective Micro and Labs Laboratory Tests Test 05/18/16 11:19 CSF Volume (Tube 1) 3.2 CSF Supernatant Color (tube 1) CLEAR CSF Gross Blood (Tube 1) 0 CSF WBC (Tube 1) 0 CSF RBC (Tube 1) 4 CSF Volume (Tube 2) 4.0 CSF Supernatant Color (tube 2) CLEAR CSF Gross Blood (Tube 2) 0 CSF Volume (Tube 3) 4.8 CSF Supernatant Color (tube 3) CLEAR CSF Gross Blood (Tube 3) 0 CSF Volume (Tube 4) 4.0 CSF Supernatant Color (tube 4) CLEAR CSF Gross Blood (Tube 4) 0 CSF WBC (Tube 4) 0 CSF RBC (Tube 4) 0 CSF Neutrophils 0 CSF Lymphocytes 0 CSF Glucose 57 CSF Total Protein 43.8 Date/Time Procedure Status Source Growth 05/18/16 11:19 Gram Stain - Final Resulted Cerebral Spinal Fluid Lumbar Puncture 05/18/16 11:19 CSF Culture - Preliminary Resulted Cerebral Spinal Fluid Lumbar Puncture NO GROWTH IN 24 HOURS. 05/18/16 11:19 Fungal Smear Received Cerebral Spinal Fluid Lumbar Puncture Pending 05/18/16 11:19 Fungal Culture Received Cerebral Spinal Fluid Lumbar Puncture Pending 05/18/16 11:19 Cancelled Cerebral Spinal Fluid Lumbar Puncture 05/18/16 11:19 Cancelled Cerebral Spinal Fluid Lumbar Puncture 05/16/16 14:55 Urine Culture - Final Complete Urine Catheterized Urine NO GROWTH IN 48 HOURS. Kelley Cannon MD May 19, 2016 08:28
[2016-05-19] MEDS: SODIUM CHLORIDE 0.9% FLUSH 10 ML FLUSH IV FLUSH SCH ×2 (09:00→20:54)
[2016-05-19] MEDS: busPIRone HCL 10 MG TAB PO SCH ×3 (10:04→20:53)
[2016-05-19] MEDS: SERTRALINE HCL 100 MG TAB PO SCH (10:05)
--- NOTE | 2016-05-19 10:08 | HHI.PR ---
Subjective Remarks Follow-up for acute encephalopathy. Patient states he is not having nausea, but he has an appetite and wants to eat. He is oriented to self, place, month, year, president. He wants his home medications restarted. Discussed with RN, patient was agitated again last night and pulled out his IV and Sawant catheter with balloon inflated Objective Vitals Vital Signs Date Time Temp Pulse Resp B/P Pulse Ox O2 Delivery O2 Flow Rate FiO2 05/19/16 04:51 97.8 75 20 138/60 95 05/18/16 23:36 97.8 75 18 151/69 96 05/18/16 20:40 79 05/18/16 19:22 97.2 80 18 148/72 99 05/18/16 17:06 99.3 74 16 144/76 98 05/18/16 15:51 93 05/18/16 13:45 98.0 77 19 162/73 96 05/18/16 13:15 70 16 147/80 100 Nasal Cannula 2 05/18/16 13:00 78 16 167/90 96 Nasal Cannula 2 05/18/16 12:42 97.6 67 16 157/85 99 Nasal Cannula 2 I/O 05/18/16 05/18/16 05/18/16 05/19/16 05/19/16 05/19/16 07:00 15:00 23:00 07:00 15:00 23:00 Intake Total 350 ml Balance 350 ml Intake IV Total 50 ml Other 300 ml Result Diagram: 05/18/16 0350 05/18/16 0350 Imaging Last Impressions Brain MRI 05/18/16 0000 Signed Impressions: Service Date/Time: Wednesday, May 18, 2016 12:05 - CONCLUSION: Negative MRI of the brain for acute ischemic event. Medardo Painter MD FACR Head CT 05/16/16 0903 Signed Impressions: Service Date/Time: Monday, May 16, 2016 10:12 - CONCLUSION: 1. No acute intracranial abnormality identified. Alan Painter MD Objective Remarks GENERAL: Well-developed well-nourished. In no acute distress. In restraints. SKIN: Warm and dry. No lesions noted. HEENT: Normocephalic. Pupils equal and round. Mucous membranes pink and moist. CARDIOVASCULAR: Regular rate and rhythm. No murmur appreciated. RESPIRATORY: No accessory muscle use. Clear to auscultation. Breath sounds equal bilaterally. GASTROINTESTINAL: Abdomen soft, non-tender, nondistended. Bowel sounds x4. MUSCULOSKELETAL: No obvious deformities. No clubbing or cyanosis. No edema. NEUROLOGICAL: Awake and alert. No focal neurological deficits. Moves upper and lower extremities spontaneously. Mumbling and slightly slurred speech. PSYCHIATRIC: Appropriate mood and affect; insight and judgment questionable; oriented 3 A/P Assessment and Plan 61-year-old male with a past medical history of bipolar disorder who presented with acute encephalopathy Acute toxic metabolic encephalopathy: Presented with aphasia. Questionable psychosis with intermittent episodes of agitation. Has history of bipolar with severe manic psychiatry feature with visual hallucination, seizures, alcohol abuse. -Appreciate neurology and psychiatry input. -Brain MRI reviewed and unremarkable -Initial LP findings unremarkable, serology, culture, and cytology pending -EEG abnormal, although may be due to sedation, watch for seizures -IVF -Haldol as needed for agitation -Caution with sedation/delirium causing medication -Seems to be improving some. Decrease restraints as tolerated. Traumatic Sawant removal, urology was consulted. Bipolar disorder: Continue Zoloft, BuSpar, Seroquel. DVT prophylaxis: Heparin held status post LP. Written by Wei Cardenas, acting as scribe for Dr. Juarez on 05/19/16 at 10:08. All or portions of this note were transcribed by ANGEL Luna. I, Dr. Viral Juarez personally performed the history, physical exam, and medical decision making; and confirmed the accuracy of the information in the transcribed note. Authenticated by Dr. Viral Juarez on 05/19/16 at 23:29. Wei Cardenas May 19, 2016 10:08 Lev Juarez DO May 19, 2016 23:29
--- NOTE | 2016-05-19 12:52 | PD.CONS ---
[facility] Service Urology Consult Requested By Primary Care Physician Panchito Spencer MD Diagnosis: History of Present Illness 61-year-old male with history of bipolar disorder. Yesterday evening in the emergency room, a Sawant catheter was inserted. Shortly thereafter the Sawant was removed by the patient. At the time, he was combative and presently he is in 4 point restraints. Patient states that he denies any history of urinary retention and gets up approximately 1-2 times at night to urinate. He denies any urinary tract infections or gross hematuria. His ability to give a history is limited but does state he had recent mandible surgery for oral cancer approximately 6 months ago. Review of Systems ROS Limitations: Altered Mental Status Cardiovascular: DENIES: Chest pain Gastrointestinal: DENIES: Abdominal pain Genitourinary: COMPLAINS OF: Nocturia, DENIES: Urinary incontinence, Urgency, Penile Discharge Musculoskeletal: DENIES: Joint pain Integumentary: DENIES: Abnormal pigmentation Hematologic/lymphatic: DENIES: Bruising Immunologic/allergic: DENIES: Eczema Neurologic: DENIES: Abnormal gait Psychiatric: COMPLAINS OF: Agitation Past Family Social History Past Medical History Bipolar disorder Hypertension Seizure disorder Oral cancer Encephalopathy Chronic low back pain Past Surgical History Mandible surgery for history of oral cancer Allergies: Coded Allergies: Codeine (Verified Adverse Reaction, Intermediate, RASH, 12/24/15) Family History Unclear Social History History of heavy drinking in the past Physical Exam Vital Signs Date Time Temp Pulse Resp B/P Pulse Ox O2 Delivery O2 Flow Rate FiO2 05/19/16 12:00 97.2 73 16 138/68 94 05/19/16 08:00 97.1 70 18 136/67 98 05/19/16 04:51 97.8 75 20 138/60 95 05/18/16 23:36 97.8 75 18 151/69 96 05/18/16 20:40 79 05/18/16 19:22 97.2 80 18 148/72 99 05/18/16 17:06 99.3 74 16 144/76 98 05/18/16 15:51 93 05/18/16 13:45 98.0 77 19 162/73 96 05/18/16 13:15 70 16 147/80 100 Nasal Cannula 2 05/18/16 13:00 78 16 167/90 96 Nasal Cannula 2 Physical Exam GENERAL: This is a well-nourished, well-developed patient, in no apparent distress. SKIN: No rashes, ecchymoses or lesions. Cool and dry. HEAD: Atraumatic. Normocephalic. No temporal or scalp tenderness. EYES: Pupils equal round and reactive. Extraocular motions intact. No scleral icterus. No injection or drainage. ENT: Nose without bleeding, purulent drainage or septal hematoma. Throat without erythema, tonsillar hypertrophy or exudate. Uvula midline. Airway patent. NECK: Trachea midline. No JVD or lymphadenopathy. Supple, nontender, no meningeal signs. CARDIOVASCULAR: Regular rate and rhythm without murmurs, gallops, or rubs. RESPIRATORY: Clear to auscultation. Breath sounds equal bilaterally. No wheezes , rales, or rhonchi. GASTROINTESTINAL: Abdomen soft, non-tender, nondistended. No hepato-splenomegaly , or palpable masses. No guarding. GENITOURINARY: Normal phallus testes are descended MUSCULOSKELETAL: Extremities without clubbing, cyanosis, or edema. No joint tenderness, effusion, or edema noted. No calf tenderness. Negative Homans sign bilaterally. NEUROLOGICAL: Awake and alert. Cranial nerves II through XII intact. Motor and sensory grossly within normal limits. Five out of 5 muscle strength in all muscle groups. Abnormal speech. Date/Time Procedure Status Source Growth 05/18/16 11:19 Gram Stain - Final Resulted Cerebral Spinal Fluid Lumbar Puncture 05/18/16 11:19 CSF Culture - Preliminary Resulted Cerebral Spinal Fluid Lumbar Puncture NO GROWTH IN 24 HOURS. 05/18/16 11:19 Fungal Smear Received Cerebral Spinal Fluid Lumbar Puncture Pending 05/18/16 11:19 Fungal Culture Received Cerebral Spinal Fluid Lumbar Puncture Pending 05/18/16 11:19 Cancelled Cerebral Spinal Fluid Lumbar Puncture 05/18/16 11:19 Cancelled Cerebral Spinal Fluid Lumbar Puncture 05/16/16 14:55 Urine Culture - Final Complete Urine Catheterized Urine NO GROWTH IN 48 HOURS. Result Diagram: 05/18/16 0350 05/18/16 0350 Imaging Last Impressions Brain MRI 05/18/16 0000 Signed Impressions: Service Date/Time: Wednesday, May 18, 2016 12:05 - CONCLUSION: Negative MRI of the brain for acute ischemic event. Medardo Painter MD FACR Head CT 05/16/16 0903 Signed Impressions: Service Date/Time: Monday, May 16, 2016 10:12 - CONCLUSION: 1. No acute intracranial abnormality identified. Alan Painter MD Assessment and Plan Assessment and Plan 61-year-old male admitted with mental status changes and concern for possible CVA. Traumatic Sawant catheter S Epps as patient was confused and removed the catheter. Bladder scan today shows approximately 350 cc and currently without any evidence of retention. Recommend leaving the Sawant catheter out and performing serial bladder scans. If patient demonstrates evidence of urinary retention, recommend clean intermittent catheterization. Thank you for the consult and for allowing me to participate in the care of this patient. Kartik Reese DO May 19, 2016 12:52
[2016-05-19] MEDS: MULTIVITAMIN INJ 10 ML, FOLIC ACID INJ 1 MG in SODIUM CHLORID 0.9% 500 ML INJ 500 ML IV SCH (16:12)
[2016-05-19] MEDS: QUEtiapine FUMARATE 200 MG TAB PO SCH (20:53)
[2016-05-20] VITALS (9 sets, daily range): BP systolic 141–175; BP diastolic 67–80; PULSE 62–76; RESP 20; TEMP 98–98.6; O2SAT 96–99
--- NOTE | 2016-05-20 07:46 | HHI.PR ---
Subjective Remarks Follow up for acute encephalopathy. The patient reports no acute events overnight. He feels much better. He is awake, alert, oriented x4. Has been out of restraints. He is currently eating breakfast, tolerating oral intake. The patient states he lives by himself in [place], has a few local friends that help him out. He has no medical complaints at this time. He feels ready for discharge. Objective Vitals Vital Signs Date Time Temp Pulse Resp B/P Pulse Ox O2 Delivery O2 Flow Rate FiO2 05/20/16 06:29 98.2 74 20 168/76 96 05/20/16 04:36 69 05/19/16 23:58 97.9 79 20 157/77 97 05/19/16 19:35 98.6 72 20 144/67 97 05/19/16 17:15 73 05/19/16 16:00 96.8 62 18 160/82 98 05/19/16 12:00 97.2 73 16 138/68 94 05/19/16 08:00 97.1 70 18 136/67 98 I/O 05/19/16 05/19/16 05/19/16 05/20/16 05/20/16 05/20/16 07:00 15:00 23:00 07:00 15:00 23:00 Intake Total 480 ml Output Total 400 ml Balance 480 ml -400 ml Intake Oral 480 ml Output Urine Total 400 ml Bladder Scan Volume Amount 339 ml # Voids 0 1 # Bowel Movements 1 4 Result Diagram: 05/18/16 0350 05/18/16 0350 Imaging Last Impressions Brain MRI 05/18/16 0000 Signed Impressions: Service Date/Time: Wednesday, May 18, 2016 12:05 - CONCLUSION: Negative MRI of the brain for acute ischemic event. Medardo Painter MD FACR Head CT 05/16/16 0903 Signed Impressions: Service Date/Time: Monday, May 16, 2016 10:12 - CONCLUSION: 1. No acute intracranial abnormality identified. Alan Painter MD Objective Remarks GENERAL: Well-nourished, well-developed male patient in [facility]. SKIN: Warm and dry. No rash. HEENT: Normocephalic. Atraumatic.Pupils equal and round. No scleral icterus. No injection or drainage. Mucous membranes pink and moist. NECK: Supple. Trachea midline. CARDIOVASCULAR: Regular rate and rhythm. S1, S2 noted. No murmur appreciated. RESPIRATORY: No accessory muscle use. Clear to auscultation. Breath sounds equal bilaterally. GASTROINTESTINAL: Abdomen soft, non-tender, nondistended. Normoactive bowel sounds x4. MUSCULOSKELETAL: No obvious deformities. Extremities without clubbing, cyanosis , or edema. NEUROLOGICAL: Awake and alert. No obvious cranial nerve deficits. Motor grossly within normal limits. Moves all extremities spontaneously. Normal speech. PSYCHIATRIC: Appropriate mood and affect; insight and judgment normal. Medications and IVs Current Medications Medications (Trade) Dose Ordered Sig/Audrey Route Start Time Stop Time Status Last Admin (NS Flush) 2 ml UNSCH PRN IV FLUSH 05/16/16 13:15 (NS Flush) 2 ml BID IV FLUSH 05/16/16 21:00 05/18/16 21:56 Heparin Sodium (Porcine) 5000 units 5,000 units Q8H SQ 05/16/16 14:00 Hold 05/17/16 06:40 (Mvi-12 Inj/ Folvite Inj/NS 500 ml Inj) 510.2 ml @ 125 mls/hr Q24H IV 05/16/16 15:00 05/21/16 14:59 05/19/16 16:12 (Buspar) 10 mg BID PO 05/16/16 21:00 05/19/16 20:53 (Zoloft) 100 mg DAILY PO 05/17/16 09:00 (SEROquel) 400 mg BID PO 05/16/16 21:00 05/19/16 20:53 Haloperidol Lactate 5 mg 5 mg Q6H PRN IM 05/16/16 16:30 05/19/16 01:35 (D5W-1/2 NS 1000 ml Inj) 1,000 ml @ 75 mls/hr [id number] PRN IV 05/16/16 16:45 05/18/16 06:34 Urinary Catheter: No Vascular Central Line Catheter: No A/P Assessment and Plan 61-year-old male with a past medical history of bipolar disorder who presented with acute encephalopathy Acute toxic metabolic encephalopathy: Presented with aphasia. Questionable psychosis with intermittent episodes of agitation. Has history of bipolar with severe manic psychiatry feature with visual hallucination, seizures, alcohol abuse. -Appreciate neurology and psychiatry input. -Brain MRI reviewed and unremarkable -LP findings unremarkable, CSF culture NGTD, serology, cytology pending -EEG abnormal, although may be due to sedation, watch for seizures -Given IVF, patient tolerating oral intake, will d/c IVF -Haldol as needed for agitation -Caution with sedation/delirium causing medication -Seems to be improving, now AAOx4. Discontinued restraints. -Discussed with psychiatry Dr. Valerio, plans to continue psychiatric medications -Possible discharge today if ok with neuro Traumatic Sawant Removal: urology was consulted, recommends serial bladder scans and straight caths if needed. Patient urinating well, no gross hematuria. Bipolar disorder: Continue Zoloft, BuSpar, Seroquel. DVT prophylaxis: Heparin held status post LP. Written by Genie Doe, acting as scribe for Dr. Juarez on 05/20/16 at 09:10 All or portions of this note were transcribed by scribANGEL Maravilla. I , Dr. Viral Juarez personally performed the history, physical exam, and medical decision making; and confirmed the accuracy of the information in the transcribed note. Authenticated by Dr. Viral Juarez on 05/20/16 at 17:29. Discharge Planning Possible discharge today if ok with neuro. See discharge summary. Genie Doe PA-C May 20, 2016 7:46 am Lev Juarez DO May 20, 2016 5:30 pm
--- NOTE | 2016-05-20 08:54 | RADRPT ---
EXAM DATE/TIME: 05/18/2016 11:18 [facility] COMPARISON: No previous studies available for comparison. INDICATIONS : Patient is in need of a lumbar puncture due to change in mental status. MEDICAL HISTORY : History of seizures, ETOH abuse, bipolar disorder, tongue cancer, lymph node cancer. SURGICAL HISTORY : History of oral resection, facial biopsy. ENCOUNTER: Initial ACUITY: 1 day PAIN SCORE: 0/10 LUMBAR PUNCTURE TIME: 1117 hours FLUORO TIME: 0.66 minutes IMAGE SERIES: 0 ACCESS LEVEL: L3-4 OPENING PRESSURE: 18.5 cm of water CLOSING PRESSURE: Not requested. FLUID: 16 cc of clear CSF was collected and sent to the laboratory for analysis. Anesthesia and pain control was provided by the Anesthesia department. PROCEDURE : 1. Fluoroscopic guided lumbar puncture. 2. Recording of opening pressure. The risks, benefits and alternatives to the procedure were explained and verbal and written consent w as obtained. The site was prepped in sterile fashion. Full sterile technique was used, including ca p, mask, sterile gloves and gown and a large sterile sheet. Hand hygiene and 2% chlorhexidine and/or betadine/alcohol prep was utilized per protocol for cutaneous antisepsis. The skin and subcutaneous tissues were infiltrated with local anesthetic solution. With fluoroscopic guidance the lumbar thecal sac was punctured at the above level described above and the opening pressure was recorded. The above described fluid was removed without difficulty. The patient tolerated the procedure well and there were no complications. CONCLUSION: Uncomplicated fluoroscopically guided lumbar puncture with pressures as above. Yoan Monroe MD on May 20, 2016 at 8:52 Board Certified Radiologist. This report was verified electronically.
--- NOTE | 2016-05-20 08:58 | HHI.PR ---
Subjective Patient symptoms today Pt seen and examined. Voiding without difficulty at present. Objective Vital Signs Vital Signs Date Time Temp Pulse Resp B/P Pulse Ox O2 Delivery O2 Flow Rate FiO2 05/20/16 06:29 98.2 74 20 168/76 96 05/20/16 04:36 69 05/19/16 23:58 97.9 79 20 157/77 97 05/19/16 19:35 98.6 72 20 144/67 97 05/19/16 17:15 73 05/19/16 16:00 96.8 62 18 160/82 98 05/19/16 12:00 97.2 73 16 138/68 94 Result Diagram: 05/18/16 0350 05/18/16 0350 Objective Remarks Abd:soft,nt,nd Bladder not distended Medications and IVs Current Medications Medications (Trade) Dose Ordered Sig/Audrey Route Start Time Stop Time Status Last Admin (NS Flush) 2 ml UNSCH PRN IV FLUSH 05/16/16 13:15 (NS Flush) 2 ml BID IV FLUSH 05/16/16 21:00 05/18/16 21:56 Heparin Sodium (Porcine) 5000 units 5,000 units Q8H SQ 05/16/16 14:00 Hold 05/17/16 06:40 (Mvi-12 Inj/ Folvite Inj/NS 500 ml Inj) 510.2 ml @ 125 mls/hr Q24H IV 05/16/16 15:00 05/21/16 14:59 05/19/16 16:12 (Buspar) 10 mg BID PO 05/16/16 21:00 05/19/16 20:53 (Zoloft) 100 mg DAILY PO 05/17/16 09:00 (SEROquel) 400 mg BID PO 05/16/16 21:00 05/19/16 20:53 Haloperidol Lactate 5 mg 5 mg Q6H PRN IM 05/16/16 16:30 05/19/16 01:35 (D5W-1/2 NS 1000 ml Inj) 1,000 ml @ 75 mls/hr [id number] PRN IV 05/16/16 16:45 05/18/16 06:34 Assessment and Plan Assessment and Plan 61-year-old male admitted with mental status changes and concern for possible CVA. Traumatic Hodgson catheter last night as patient was confused and removed the catheter. Bladder scan today shows approximately 350 cc and currently without any evidence of retention. Recommend leaving the Hodgson catheter out and performing serial bladder scans. If patient demonstrates evidence of urinary retention, recommend clean intermittent catheterization. Thank you for the consult and for allowing me to participate in the care of this patient. 05/20 61-year-old male admitted with mental status changes and concern for possible CVA. H/O Traumatic hodgson catheter; pt removed himself Now voiding Continue to encourage PO water intake to clear urine Call with questions. Kartik Reese DO May 20, 2016 08:58
[2016-05-20] MEDS: QUEtiapine FUMARATE 200 MG TAB PO SCH ×2 (09:01→21:32)
[2016-05-20] MEDS: busPIRone HCL 10 MG TAB PO SCH ×2 (09:01→21:32)
[2016-05-20] MEDS: SERTRALINE HCL 100 MG TAB PO SCH (09:01)
[2016-05-20] MEDS: SODIUM CHLORIDE 0.9% FLUSH 10 ML FLUSH IV FLUSH SCH ×2 (09:01→21:00)
[2016-05-20 09:21] LABS: HSV 1,PCR Negative (Negative)
--- NOTE | 2016-05-20 12:21 | HHI.PYPN ---
Subjective Remarks Patient was seen today for psychiatric reevaluation, patient was found calm, cooperative and pleasant today, fully awake and alert, oriented 3, patient reports that he feels much better, reports good mood, denies depressive symptoms , denies anhedonia, he denies anxiety, he denies perceptual disturbances, he denies visual and auditory hallucinations, he denies suicidal and homicidal ideation, no paranoia, no delusions, no flight of ideas, no agitation, no aggressive behavior observed or reported. Patient has been compliant with his medication. Review of Systems Other No somatic complaint Objective Alert: Yes [place]: Person, Place, Date, Situation Mood: Calm Affect: Appropriate Memory Intact: Immediate, Recent, Remote Hallucinations: Other (he denies) Delusions: No (none elicited) Delusion Type: Other (none elicited) Suicidal: Ideation (he denies) Homicidal: Ideation (he denies) Insight/Judgment Good Labs Date/Time Procedure Status Source Growth 05/18/16 11:19 Gram Stain - Final Resulted Cerebral Spinal Fluid Lumbar Puncture 05/18/16 11:19 CSF Culture - Preliminary Resulted Cerebral Spinal Fluid Lumbar Puncture NO GROWTH IN 48 HOURS. 05/18/16 11:19 Fungal Smear - Final Resulted Cerebral Spinal Fluid Lumbar Puncture NO FUNGAL ELEMENTS SEEN. 05/18/16 11:19 Fungal Culture Resulted Cerebral Spinal Fluid Lumbar Puncture Pending 05/18/16 11:19 Cancelled Cerebral Spinal Fluid Lumbar Puncture 05/18/16 11:19 Cancelled Cerebral Spinal Fluid Lumbar Puncture 05/16/16 14:55 Urine Culture - Final Complete Urine Catheterized Urine NO GROWTH IN 48 HOURS. Vitals/IOs Vital Signs Date Time Temp Pulse Resp B/P Pulse Ox O2 Delivery O2 Flow Rate FiO2 05/20/16 10:42 72 05/20/16 08:00 98.6 20 144/75 98 05/18/16 13:15 Nasal Cannula 2 Intake and Output 05/19/16 05/19/16 05/20/16 08:00 16:00 00:00 Intake Total 480 ml Output Total 400 ml Balance 480 ml -400 ml Assessment & Plan Problem List: (1) Delirium due to another medical condition Assessment & Plan: Today and psychiatric reevaluation patient seems to be at baseline, no depression, no anxiety, no charlene or psychosis present. Patient denies suicidal and homicidal ideation, patient denies visual and auditory hallucinations. She is fully oriented 3, no attention deficit, no fluctuation of consciousness observed or reported. No motoric agitation or aggressive behavior observed. Patient can continue his psychiatric care as an outpatient with Dr. Hayes. Continue current psychotropics. ICD Code: F05 Assessment & Plan Estimated LOS: days Justification for Cont. Inpt. Patient does not meet criteria for second admission at this moment Simone Valerio MD May 20, 2016 12:21
[2016-05-20] MEDS: MULTIVITAMIN INJ 10 ML, FOLIC ACID INJ 1 MG in SODIUM CHLORID 0.9% 500 ML INJ 500 ML IV SCH (15:48)
[2016-05-20 15:54] LABS: VITAMIN B6 8.6 ng/mL (2.1-21.7)
--- NOTE | 2016-05-20 18:12 | HHI.PR ---
Review/Management Daily Summary not following commands, agitated and uncooperative rumbling speech, wants to be left alone unable to get mri due to agitation haldol and ativan given discussed with RN needs mri and LP, dx uncertain, ??etoh withdrawal doubt of encephalitis, neoplastic meningitis etc 05/19 speech significantly better, comprehensible and making some sense today follows commands, moves 4 limbs well no distress csf intial data negative encephalopathy perhaps secondary to combo of psych disease/meds and etoh pending citology out of bed activities 05/20 doing well, back to baseline speech pressed but most of it likely due to prior oral cancer surgery no cx, wants to go home with his friend, caregiver ok neuro [facility] to be discharged Subjective Subjective Comments No acute events reported No headache No chest pain No dyspnea Active Medications Current Medications Medications (Trade) Dose Ordered Sig/Audrey Route Start Time Stop Time Status Last Admin (NS Flush) 2 ml UNSCH PRN IV FLUSH 05/16/16 13:15 (NS Flush) 2 ml BID IV FLUSH 05/16/16 21:00 05/20/16 09:01 Heparin Sodium (Porcine) 5000 units 5,000 units Q8H SQ 05/16/16 14:00 Hold 05/17/16 06:40 (Mvi-12 Inj/ Folvite Inj/NS 500 ml Inj) 510.2 ml @ 125 mls/hr Q24H IV 05/16/16 15:00 05/21/16 14:59 05/20/16 15:48 (Buspar) 10 mg BID PO 05/16/16 21:00 05/20/16 09:01 (Zoloft) 100 mg DAILY PO 05/17/16 09:00 05/20/16 09:01 (SEROquel) 400 mg BID PO 05/16/16 21:00 05/20/16 09:01 Haloperidol Lactate 5 mg 5 mg Q6H PRN IM 05/16/16 16:30 05/19/16 01:35 (D5W-1/2 NS 1000 ml Inj) 1,000 ml @ 75 mls/hr [id number] PRN IV 05/16/16 16:45 05/18/16 06:34 Allergies Allergies Coded Allergies Codeine (Verified Adverse Reaction, Intermediate, RASH, 12/24/15) Exam I&O / VS 405/19/16 05/20/16 15:00 23:00 07:00 Intake Total 480 ml Output Total 400 ml Balance 480 ml -400 ml Intake Oral 480 ml Output Urine Total 400 ml Bladder Scan Volume Amount 339 ml # Voids 0 1 # Bowel Movements 1 4 Vital Signs Date Time Temp Pulse Resp B/P Pulse Ox O2 Delivery O2 Flow Rate FiO2 05/20/16 16:02 98.5 74 20 149/67 98 05/20/16 15:32 74 05/20/16 12:00 98.0 76 20 141/67 99 05/20/16 10:42 72 05/20/16 08:00 98.6 62 20 144/75 98 05/20/16 06:29 98.2 74 20 168/76 96 05/20/16 04:36 69 05/19/16 23:58 97.9 79 20 157/77 97 05/19/16 19:35 98.6 72 20 144/67 97 Objective Micro and Labs Date/Time Procedure Status Source Growth 05/18/16 11:19 Gram Stain - Final Resulted Cerebral Spinal Fluid Lumbar Puncture 05/18/16 11:19 CSF Culture - Preliminary Resulted Cerebral Spinal Fluid Lumbar Puncture NO GROWTH IN 48 HOURS. 05/18/16 11:19 Fungal Smear - Final Resulted Cerebral Spinal Fluid Lumbar Puncture NO FUNGAL ELEMENTS SEEN. 05/18/16 11:19 Fungal Culture Resulted Cerebral Spinal Fluid Lumbar Puncture Pending 05/18/16 11:19 Cancelled Cerebral Spinal Fluid Lumbar Puncture 05/18/16 11:19 Cancelled Cerebral Spinal Fluid Lumbar Puncture 05/16/16 14:55 Urine Culture - Final Complete Urine Catheterized Urine NO GROWTH IN 48 HOURS. Kelley Cannon MD May 20, 2016 18:12
[2016-05-20] MEDS ORDERED: BUSP10TA PO (18:45)
[2016-05-20] MEDS ORDERED: ZOLO100T PO (18:45)
[2016-05-20] MEDS ORDERED: QUET1TAB9 PO (18:45)
--- NOTE | 2016-05-20 19:03 | HHI.DS ---
Discharge Summary Admission Date May 16, 2016 at 11:47 am Discharge Date: May 20, 2016 Admitting Diagnosis CVA (1) Altered mental status ICD Code: R41.82 Diagnosis: Principal (2) Delirium due to another medical condition ICD Code: F05 Diagnosis: Principal (3) Bipolar disorder ICD Code: F31.9 (4) Visual hallucinations ICD Code: R44.1 Diagnosis: Secondary (5) Encephalopathy ICD Code: G93.40 Diagnosis: Principal Procedures Lumbar puncture Brief History - From Admission 61 years old male with significant past medical history of bipolar disease with severe manic features and visual hallucination with multiple missions to psych unit, also hypertension seizure, history of oral cancer status post surgery, brought to the ER. [facility] due to sudden aphagia. Patient has been drinking yesterday night with his friend then today his other friend came to check on him and he found him not able to talk. I saw the patient in ED room he was laying in bed with upper extremities restrained to the bed. He was lethargic, having nonpurposeful upper and lower extremity movement, he's trying to talk but he is basically mumbling in an aphasic way. I discussed with ED physician, her concern that the patient despite his psychiatry history he never had aphasia . CT of the head in the ED did not show any hemorrhage or stroke, his basic lab no electrolyte imbalance. Patient wasn't able to give any history to me CBC/BMP: 05/18/16 0350 05/18/16 0350 Significant Findings Laboratory Tests Test 05/18/16 05/18/16 03:50 11:19 Red Blood Count 3.42 MIL/MM3 (4.50-5.90) Hemoglobin 11.9 GM/DL (13.0-17.0) Hematocrit 34.6 % (39.0-51.0) Mean Corpuscular Volume 101.1 FL (80.0-100.0) Mean Corpuscular Hemoglobin 34.8 PG (27.0-34.0) Platelet Count 128 TH/MM3 (150-450) Neutrophils (%) (Auto) 74.5 % (16.0-70.0) Monocytes (%) (Auto) 9.8 % (0.0-8.0) Lymphocytes # (Auto) 0.9 TH/MM3 (1.0-4.8) Chloride Level 109 MEQ/L (98-107) Carbon Dioxide Level 18.4 MEQ/L (21.0-32.0) CSF RBC (Tube 1) 4 /MM3 (NONE) Imaging Last Impressions Brain MRI 05/18/16 0000 Signed Impressions: Service Date/Time: Wednesday, May 18, 2016 12:05 - CONCLUSION: Negative MRI of the brain for acute ischemic event. Medardo Painter MD FACR Lumbar Puncture Fluoroscopy 05/17/16 0000 Signed Impressions: Service Date/Time: Wednesday, May 18, 2016 11:18 - CONCLUSION: Uncomplicated fluoroscopically guided lumbar puncture with pressures as above. Yoan Monroe MD Head CT 05/16/16 0903 Signed Impressions: Service Date/Time: Monday, May 16, 2016 10:12 - CONCLUSION: 1. No acute intracranial abnormality identified. Alan Painter MD PE at Discharge GENERAL: Well-nourished, well-developed male patient in NAD. SKIN: Warm and dry. No rash. HEENT: Normocephalic. Atraumatic.Pupils equal and round. No scleral icterus. No injection or drainage. Mucous membranes pink and moist. NECK: Supple. Trachea midline. CARDIOVASCULAR: Regular rate and rhythm. S1, S2 noted. No murmur appreciated. RESPIRATORY: No accessory muscle use. Clear to auscultation. Breath sounds equal bilaterally. GASTROINTESTINAL: Abdomen soft, non-tender, nondistended. Normoactive bowel sounds x4. MUSCULOSKELETAL: No obvious deformities. Extremities without clubbing, cyanosis , or edema. NEUROLOGICAL: Awake and alert. No obvious cranial nerve deficits. Motor grossly within normal limits. Moves all extremities spontaneously. Normal speech. PSYCHIATRIC: Appropriate mood and affect; insight and judgment normal. Hospital Course 61-year-old male with a past medical history of bipolar disorder who presented with acute encephalopathy Acute toxic metabolic encephalopathy: Presented with aphasia. Questionable psychosis with intermittent episodes of agitation. Has history of bipolar with severe manic psychiatry feature with visual hallucination, seizures, alcohol abuse. -Appreciate neurology and psychiatry input. -Brain MRI reviewed and unremarkable -LP findings unremarkable, CSF culture NGTD, serology, cytology pending -EEG abnormal, although may be due to sedation, watch for seizures -Given IVF, patient tolerating oral intake, will d/c IVF -Haldol as needed for agitation -Caution with sedation/delirium causing medication -Seems to be improving, now AAOx4. Discontinued restraints. -Discussed with psychiatry Dr. Valerio, plans to continue psychiatric medications which includes Buspar 10mg bid, Seroquel 400mg bid, Zoloft 100mg daily -Patient cleared for discharge today by neurology Dr. Cannon Traumatic Sawant Removal: urology was consulted, recommends serial bladder scans and straight caths if needed. Patient urinating well, no gross hematuria. Bipolar disorder: Continue Zoloft, BuSpar, Seroquel. DVT prophylaxis: Heparin held status post LP. Written by Genie Doe, acting as scribe for Dr. Juarez on 05/20/16 at 09:10 All or portions of this note were transcribed by scribe ANGEL Hutchins. I , Dr. Viral Juarez personally performed the history, physical exam, and medical decision making; and confirmed the accuracy of the information in the transcribed note. Authenticated by Dr. Viral Juarez on 05/20/16 at 17:29. Pt Condition on Discharge: Stable Discharge Disposition: Discharge Home Discharge Time: > 30 minutes Discharge Instructions DIET: Follow Instructions for: As Tolerated, No Restrictions Activities you can perform: Regular-No Restrictions Activities to Avoid: Driving Follow up Referrals: PCP Follow-up - 1 Week with Panchito Spencer MD Psychiatry Adult - 1 Week New Medications: Buspirone (Buspirone) 10 Mg Tab 10 MG PO BID Psychosis #60 TAB Quetiapine (Quetiapine) 200 Mg Tab 400 MG PO BID Psychosis #60 TAB Sertraline (Zoloft) 100 Mg Tab 100 MG PO DAILY Depression Control #30 TAB Discontinued Medications: Benztropine (Benztropine) 0.5 Mg Tab 0.5 MG PO BID #60 Ref 0 TAB Buspirone (Buspirone) 10 Mg Tab 10 MG PO DAILY Anxiety Ref 0 TAB Haloperidol (Haloperidol) 5 Mg Tab 5 MG PO TID Psychosis #90 TAB Oxycodone (Oxycodone) 10 Mg Tab 10 MG PO Q6H PRN PAIN Ref 0 TAB Quetiapine XR (Seroquel XR) 400 Mg Tab 400 MG PO DAILY #30 Ref 0 TAB Sertraline (Sertraline) 50 Mg Tab 50 MG PO DAILY #30 Ref 0 TAB Tramadol (Tramadol) 50 Mg Tab 50 MG PO BID PRN PAIN Ref 0 TAB Zolpidem (Ambien) 10 Mg Tab 10 MG PO HS PRN INSOMNIA Ref 0 TAB Genie Doe PA-C May 20, 2016 19:03 Lev Juarez DO May 21, 2016 23:12
[2016-05-20] MEDS ORDERED: traMADol HCL 50 MG TAB PO ONE (22:15)
[2016-05-20] MEDS ORDERED: diphenhydrAMINE HCL 25 MG CAP PO ONE (22:15)
[2016-05-21 00:44] VITALS: BP 148/67; PULSE 62; RESP 20; TEMP 98; O2SAT 96
[2016-05-21 04:36] VITALS: BP 161/70; PULSE 66; RESP 20; TEMP 98.8; O2SAT 95
[2016-05-21 04:41] VITALS: PULSE 64
== END 2016-05-21 09:02 | disposition home or self-care (01) ==
LOC: NEPE 08:39 → NEDA 11:47 → NEPFCDU 14:11
PROVIDERS: ADMIT Hospitalist; ATTEND Hospitalist
DX: G92 Toxic encephalopathy (principal); R44.1 Visual hallucinations; F05 Delirium due to known physiological condition; I10 Essential (primary) hypertension; F31.9 Bipolar disorder, unspecified; F41.9 Anxiety disorder, unspecified; G89.29 Other chronic pain; M54.5 Low back pain; D50.9 Iron deficiency anemia, unspecified; F10.10 Alcohol abuse, uncomplicated; M19.90 Unspecified osteoarthritis, unspecified site; Z85.819 Personal history of malignant neoplasm of unspecified site of lip, oral cavity, and pharynx; Z88.5 Allergy status to narcotic agent; Z78.1 Physical restraint status
CPT/HCPCS: 62270; 70450; 70553; 76937; 77003; 80048; 80307; 81001; 82140; 82550; 82607; 82746; 82945; 82948; 83605; 83735; 84157; 84207; 84425; 84443; 84484; 85025; 85610; 85730; 86592; 87070; 87086; 87102; 87205; 87206; 87529; 89051; 93005; 95819; 99285; A9579; G0378; J1630; J1644; J2060; J3010; J3411; J7040